=== PATIENT | male | born 1980 | race Caucasian/White ===

== ENCOUNTER 2016-09-26 08:47 | Emergency (ER) | payer MEDICAID ==
[~2016-09-26] VITALS: Ht 152.4 cm; Wt 78.0 kg
[2016-09-26 08:49] VITALS: Ht 152.4 cm; Wt 78.0 kg
[2016-09-26] MEDS ORDERED: ONDANSETRON (ODT) 4 MG TAB ODT STA (09:21)
[2016-09-26] MEDS ORDERED: ONDA4TAB14 PO (09:23)
[2016-09-26] MEDS ORDERED: ACET500C5 PO (09:23)
--- NOTE | 2016-09-26 09:39 | ERD ---
ER Documentation Chief Complaint Date/Time DATE: 09/26/16 TIME: 09:35 Chief Complaint ABD PAIN SINCE YESTERDAY HPI Patient is a 35-year-old male with no past medical history who presents to the ED with generalized abdominal pain and one episode of nonbloody nonbilious emesis yesterday after eating oysters. Patient states that he had oysters from the streets. And soon developed abdominal pain and vomiting. He has not had any vomiting today or diarrhea. States his last bowel movement was yesterday. Denies headache, neck pain, neck stiffness. Denies dysuria urgency. Denies fever or chills. Has not taken any medication for his symptoms. Has no other complaints. ROS All systems reviewed and are negative except as per history of present illness. Medications Home Meds Active Scripts Acetaminophen* (Tylophen*) 500 Mg Capsule, 1 CAP PO Q6H Y for PAIN AND OR ELEVATED TEMP, #20 CAP Prov:NITHYA SALAZAR PA-C 09/26/16 Ondansetron (Ondansetron Odt) 4 Mg Tab.rapdis, 4 MG PO Q6H Y for NAUSEA AND/OR VOMITING, #20 TAB Prov:NITHYA SALAZAR PA-C 09/26/16 PMhx/Soc Medical and Surgical Hx: pt denies Medical Hx, pt denies Surgical Hx History of Surgery: No Anesthesia Reaction: No Hx Neurological Disorder: No Hx Respiratory Disorders: No Hx Cardiac Disorders: No Hx Psychiatric Problems: No Hx Miscellaneous Medical Probl: No Hx Alcohol Use: Yes (3 beers per day) Hx Substance Use: No Hx Tobacco Use: No Smoking Status: Never smoker FmHx Family History: No coronary disease, No diabetes, No other Physical Exam Vitals Vital Signs Date Time Temp Pulse Resp B/P Pulse Ox O2 Delivery O2 Flow Rate FiO2 09/26/16 08:49 98.0 78 18 141/78 99 Physical Exam GENERAL: Well-developed, well-nourished male. Appears in no acute distress. HEAD: Normocephalic, atraumatic. EYES: Pupils are equally reactive bilaterally. EOMs grossly intact. No conjunctival erythema. ENT: Moist mucous membranes. No uvula deviation. No kissing tonsils. No exudates. NECK: Supple. No lymphadenopathy or thyromegaly. No meningismus. negative kernig. negative brudinski. LUNG: Clear to auscultation bilaterally. No rhonchi, wheezing, rales or coarse breath sounds. HEART: Regular rate and rhythm. No murmurs, rubs or gallops. ABDOMEN: No scars, ecchymosis or rashes noted. Soft nondistended positive bowel sounds in all four quadrants. No rebound tenderness, no guarding. (-) McBurneys point tenderness. No CVA tenderness. Generalized tenderness. No focal tenderness. BACK: No midline tenderness. Extremities: Equal pulses bilaterally. No peripheral clubbing, cyanosis or edema. No unilateral leg swelling. NEUROLOGIC: Alert and oriented. Moving all four extremities. 5/5 strength in all extremities. Normal speech. Steady gait. Moist mucous membranes SKIN: Normal color. Warm and dry. No rashes or lesions. Capillary refill < 2 seconds Results 24 hrs Current Medications Medications (Trade) Dose Ordered Sig/Sulaiman Route PRN Reason Start Time Stop Time Status Last Admin Dose Admin Ondansetron HCl (Zofran Odt) 4 mg ONCE STAT ODT 09/26/16 09:21 09/26/16 09:23 DC 09/26/16 09:38 Procedures/MDM ER COURSE: I kept the patient and/or family informed of laboratory and diagnostic imaging results throughout the emergency room course. MEDICATIONS Zofran, p.o. challenge. Tolerated well with no adverse reaction. MEDICAL DECISION MAKING: This is a 35-year-old male who presents with abdominal pain and vomiting 1 day. Vital signs were reviewed. Patient is afebrile. Patient is not hypoxic. Patient is not toxic or ill-appearing. Patient likely has abdominal pain of viral etiology. Patient's abdominal pain occurred after eating oysters. He has not had any vomiting or diarrhea today. I do not think further imaging studies or blood work is necessary today. Risk versus benefits of the CT scan were discussed with patient. However at this point I do not think a CT scan is warranted. Patient does not have focal tenderness on exam. Low suspicion for ACS, AAA, perforated ulcer, bowel obstruction, cholecystitis, choledocholithiasis, cholangitis, pancreatitis, hepatic abscess, appendicitis, diverticulitis, gastroenteritis, hepatitis, peptic ulcer disease. I reexamined patient after administration of medication, seen improvement in symptoms. DISCHARGE: At this time, patient is stable for discharge and outpatient management with no new complaints during the ER course. Patient was sent home with Zofran, Tylenol and note for work to follow a bland diet.. Patient will be discharged home with instructions to recheck for new or worsening symptoms such as fever, nausea, weakness, LOC and to follow up with primary care in the next 1-2 days. Patient was advised to return to the ER for any new or worsening symptoms. Plan was discussed and patient and/or family understands and agrees. Home instructions were given. Departure Diagnosis: Primary Impression: Nausea & vomiting Vomiting type: unspecified Vomiting Intractability: non-intractable Qualified Code: R11.2 - Non-intractable vomiting with nausea, unspecified vomiting type Condition: Stable Patient Instructions: Nausea and Vomiting-Adult Referrals: [facility] Usted se quinn hecho un examen mdico de control que le indica que no est en norma condicin que requiera tratamiento urgente en el Departamento de Emergencia. Un estudio ms profundo y el tratamiento de benitez condicin pueden esperar sin ningn riesgo hasta que usted sea atendida/o en el consultorio de benitez mdico o norma cl akash. Es responsabilidad suya arreglar norma cristina para el seguimiento del alexey. MANEJO DE CONDICIONES NO URGENTES EN EL FUTURO 1) Si usted tiene un mdico de atencin primaria: Usted debera llamar a benitez mdico de atencin primaria antes de venir al departamento de emergencia. Despus de las horas de consultorio, benitez doctor o benitez asociado/a est disponible por telfono. El mdico o enfermero de bridget en el servicio telefnico puede asesorarle por edward medio para atender el problema, o alexey contrario se puede programar norma cristina. 2) Si usted no tiene un mdico de atencin primaria: Llame al mdico o clnica de referencia que aparece abajo no las horas de consultorio para hacer norma cristina para que le vean. CLINICAS: [place] [address] [phone] [facility] [phone] [facility] [phone] [place] [address] [phone] [place] [phone] [place] [id number] [phone] Additional Instructions: Llame al doctor MAANA y susan norma CRISTINA PARA DENTRO DE 1-2 FIGUEROA.Dgale a la secretaria que nosotros le instruimos hacer esta cristina.Avise o llame si benitez condicin se empeora antes de la cristina. Regresa aqui si peor o no mejor. NITHYA SALAZAR PA-C September 26, 2016 09:39
== END 2016-09-26 10:12 | disposition home or self-care (01) ==
LOC: FTE 08:47
DX: R11.2 Nausea with vomiting, unspecified (principal)
CPT/HCPCS: Z7502; Z7610; 99283

== ENCOUNTER 2017-01-21 22:52 | Inpatient (IN) | payer MEDICAID ==
[~2017-01-21] VITALS: Ht 170.2 cm; Wt 82.2 kg
[~2017-01-21 22:52] MED LIST: ACET500C5 PO; ONDA4TAB14 PO
[2017-01-22] VITALS (23 sets, daily range): BP systolic 120–159; BP diastolic 66–99; PULSE 62–86; RESP 13–22; TEMP 98.6; Ht 170.2 cm; Wt 82.2 kg
[2017-01-22] MEDS ORDERED: morphine 4 MG/ML VIAL IV STA (00:17)
[2017-01-22] MEDS ORDERED: ONDANSETRON 4 MG INJ IV STA (00:17)
[2017-01-22 01:19] LABS: BASOPHIL # 0.1 10^3/ul (0.0-0.1); BASOPHILS % 0.3 % (0.0-2.0); EOSINOPHILS # 0.1 10^3/ul (0.0-0.5); EOSINOPHILS % 0.3 % (0.0-7.0); HEMATOCRIT 41.7 % (42.0-52.0); HEMOGLOBIN 15.4 g/dl (14.0-18.0); LYMPHOCYTES % 6.6 % (15.0-51.0); MEAN CORPUSCULAR HEMOGLOBIN 32.2 pg (29.0-33.0); MEAN CORPUSCULAR HGB CONC 36.9 g/dl (32.0-37.0); MEAN CORPUSCULAR VOLUME 87.1 fl (82.0-101.0); MEAN PLATELET VOLUME 10.1 fl (7.4-10.4); MONOCYTE # 0.6 10^3/ul (0.3-0.9); MONOCYTES % 3.9 % (0.0-11.0); NEUTROPHIL # 13.5 10^3/ul (1.6-7.5); NEUTROPHILS % 88.6 % (39.0-77.0); PLATELET COUNT 240 10^3/UL (140-415); RED BLOOD COUNT 4.79 10^6/ul (4.70-6.10); WHITE BLOOD COUNT 15.3 10^3/ul (4.8-10.8)
--- NOTE | 2017-01-22 01:37 | RADRPT ---
PROCEDURE: CT Abdomen and Pelvis without contrast. CLINICAL INDICATION: Abdominal pain. TECHNIQUE: A CT scan of the abdomen and pelvis was performed without intravenous contrast. Nava l and sagittal reformatted images were generated. Images were reviewed on a high-resolution PACS wor kstation. CTDIvol: 12.22 mGy. DLP: 788.19 mGy-cm. One or more of the following dose reduction techniques were used: - Automated exposure control. - Adjustment of the mA and/or kV according to patient size. - Use of iterative reconstruction technique. COMPARISON: None. FINDINGS: There are dependent atelectatic changes in both lower lungs. Evaluation of the abdominal and pelvic viscera is limited by the lack of oral and intravenous contra st. The liver is unremarkable. The gallbladder is normal in appearance. The common bile duct is not dila sandee. The spleen is not enlarged. No pancreatic lesion is identified and there is no pancreatic ducta l dilatation. The adrenal glands are unremarkable. The kidneys are normal in size. There is no perinephric fat stranding. No hydronephrosis is seen. No urinary stone is identified. The small and large bowel are normal in caliber. There is no bowel wall thickening.The appendix is d ilated up to 1.2 cm in diameter and there are periappendiceal inflammatory changes, consistent with appendicitis. No associated periappendiceal fluid collection or pneumoperitoneum is identified. The appendix overlies the right psoas muscle. The urinary bladder is unremarkable. The pelvic organs are within normal limits. There is a small fa t containing right inguinal hernia. No lymphadenopathy is identified. There is no ascites. There are no arterial calcifications. A small fat containing periumbilical hernia is noted. No suspicious osseous lesion is idenitified. IMPRESSION: 1. Appendicitis. No pneumoperitoneum or abscess is identified. The appendix overlies the right psoa s muscle. 2. Small fat containing periumbilical and right inguinal hernias. RPTAT: HTAR .Juanito Cordero MD, Date Time Electronically viewed and signed by .Juanito Cordero MD, on 01/22/2017 01:37 .R/
[2017-01-22 01:43] LABS: ALBUMIN 4.3 g/dl (3.3-4.9); ALBUMIN/GLOBULIN RATIO 1.34; BILIRUBIN,INDIRECT 0.4 mg/dl (0-1.1); BILIRUBIN,TOTAL 0.4 mg/dl (0.2-1.3); CALCIUM 9.7 mg/dl (8.4-10.2); CREATININE 0.8 mg/dl (0.61-1.24); POTASSIUM 3.6 mmol/L (3.5-5.1); TOTAL PROTEIN 7.5 g/dl (6.1-8.1)
--- NOTE | 2017-01-22 01:51 | ERD ---
ER Documentation Chief Complaint Date/Time DATE: 01/22/17 TIME: 01:46 Chief Complaint lower abd pain x 1 day (KEANU MATSON PA-C) HPI Patient is a 36-year-old male who presents to the emergency department for concerns of lower abdominal pain which started at 3 PM today. Patient describes the pain to be episodic in nature. Patient states the pain is in his bilateral right and lower quadrants. Patient denies any fevers, chills, nausea , vomiting, dysuria, diarrhea or rectal bleeding. She denies any chest pain, shortness of breath, LOC. Patient states his last bowel movement was earlier today. Patient's last p.o. intake was at 6 PM. No recent travel. No sick contacts. (KEANU MATSON PA-C) ROS All systems reviewed and are negative except as per history of present illness. (KEANU MATSON PA-C) Medications Home Meds Active Scripts Acetaminophen* (Tylophen*) 500 Mg Capsule, 1 CAP PO Q6H Y for PAIN AND OR ELEVATED TEMP, #20 CAP Prov:NITHYA SALAZAR PA-C 09/26/16 Ondansetron (Ondansetron Odt) 4 Mg Tab.rapdis, 4 MG PO Q6H Y for NAUSEA AND/OR VOMITING, #20 TAB Prov:NITHYA SALAZAR PA-C 09/26/16 Allergies Allergies: Coded Allergies: No Known Allergy (Unverified , 01/21/17) PMhx/Soc Medical and Surgical Hx: pt denies Medical Hx, pt denies Surgical Hx History of Surgery: No Anesthesia Reaction: No Hx Neurological Disorder: No Hx Respiratory Disorders: No Hx Cardiac Disorders: No Hx Psychiatric Problems: No Hx Miscellaneous Medical Probl: No Hx Alcohol Use: Yes (3 beers per day) Hx Substance Use: No Hx Tobacco Use: No (KEANU MATSON PA-C) Physical Exam Vitals Vital Signs Date Time Temp Pulse Resp B/P Pulse Ox O2 Delivery O2 Flow Rate FiO2 01/21/17 22:54 98.4 71 20 131/77 99 (MARCOS CHA DO) Physical Exam GENERAL: Well-developed, well-nourished male. Appears in no acute distress. HEAD: Normocephalic, atraumatic. EYES: Pupils are equally reactive bilaterally. EOMs grossly intact. No conjunctival erythema. ENT: Moist mucous membranes. No uvula deviation. No kissing tonsils. NECK: Supple. No meningismus. Normal range of motion of the neck. LUNG: Clear to auscultation bilaterally. No rhonchi, wheezing, rales or coarse breath sounds. HEART: Regular rate and rhythm. No murmurs, rubs or gallops. ABDOMEN: Soft, and nondistended. Tender to palpation in the right lower quadrant and left lower quadrant. +Guarding. +McBurney's point tenderness. No CVA tenderness. BACK: No midline tenderness. EXTREMITIES: Equal pulses bilaterally. No peripheral clubbing, cyanosis or edema. No unilateral leg swelling. NEUROLOGIC: Alert and oriented. Moving all four extremities without any difficulty. Normal speech. Steady gait. SKIN: Normal color. Warm and dry. No rashes or lesions. (KEANU MATSON PA-C) Result Diagram: 01/22/17 0054 01/22/17 0054 Results 24 hrs Laboratory Tests Test 01/22/17 00:54 White Blood Count 15.310^3/ul Red Blood Count 4.7910^6/ul Hemoglobin 15.4g/dl Hematocrit 41.7% Mean Corpuscular Volume 87.1fl Mean Corpuscular Hemoglobin 32.2pg Mean Corpuscular Hemoglobin Concent 36.9g/dl Red Cell Distribution Width 12.0% Platelet Count 92041^3/UL Mean Platelet Volume 10.1fl Neutrophils % 88.6% Lymphocytes % 6.6% Monocytes % 3.9% Eosinophils % 0.3% Basophils % 0.3% Nucleated Red Blood Cells % 0.0/100WBC Neutrophils # 13.510^3/ul Lymphocytes # 1.010^3/ul Monocytes # 0.610^3/ul Eosinophils # 0.110^3/ul Basophils # 0.110^3/ul Nucleated Red Blood Cells # 0.010^3/ul Current Medications Medications (Trade) Dose Ordered Sig/Sulaiman Route PRN Reason Start Time Stop Time Status Last Admin Dose Admin Morphine Sulfate (morphine) 4 mg ONCE STAT IV 01/22/17 00:17 01/22/17 00:18 DC 01/22/17 00:59 Ondansetron HCl 4 mg 4 mg ONCE STAT IV 01/22/17 00:17 01/22/17 00:18 DC 01/22/17 00:59 Sodium Chloride (NS) 1,000 ml @ 1,000 mls/hr Q1H ONCE IV 01/22/17 02:00 01/22/17 02:59 Morphine Sulfate 2 mg 2 mg ONCE ONCE IV 01/22/17 02:00 01/22/17 02:01 Piperacillin Sod/ Tazobactam Sod 100 ml @ 200 mls/hr ONCE ONCE IVPB 01/22/17 02:00 01/22/17 02:29 UNV Sodium Chloride (NS) 1,000 ml @ 1,000 mls/hr Q1H ONCE IV 01/22/17 02:00 01/22/17 02:59 UNV (MARCOS CHA DO) Procedures/MDM ED COURSE: The patient was stable throughout ED course. I kept the patient and/or family informed of laboratory and diagnostic imaging results throughout the ED course. DIAGNOSTIC IMAGING: Read by radiologist. DIAGNOSTIC IMAGING REPORT Patient: PREM KATZ : 1980 Age: 36 Sex: M MR #: [id number] DOS: 01/22/17 0017 Ordering MD: KEANU MATSON PA-C Location: [facility] Room/Bed: PROCEDURE: CT Abdomen and Pelvis without contrast. CLINICAL INDICATION: Abdominal pain. TECHNIQUE: A CT scan of the abdomen and pelvis was performed without intravenous contrast. Coronal and sagittal reformatted images were generated. Images were reviewed on a high-resolution PACS workstation. CTDIvol: 12.22 mGy. DLP: 788.19 mGy-cm. One or more of the following dose reduction techniques were used: - Automated exposure control. - Adjustment of the mA and/or kV according to patient size. - Use of iterative reconstruction technique. COMPARISON: None. FINDINGS: There are dependent atelectatic changes in both lower lungs. Evaluation of the abdominal and pelvic viscera is limited by the lack of oral and intravenous contrast. The liver is unremarkable. The gallbladder is normal in appearance. The common bile duct is not dilated. The spleen is not enlarged. No pancreatic lesion is identified and there is no pancreatic ductal dilatation. The adrenal glands are unremarkable. The kidneys are normal in size. There is no perinephric fat stranding. No hydronephrosis is seen. No urinary stone is identified. The small and large bowel are normal in caliber. There is no bowel wall thickening.The appendix is dilated up to 1.2 cm in diameter and there are periappendiceal inflammatory changes, consistent with appendicitis. No associated periappendiceal fluid collection or pneumoperitoneum is identified. The appendix overlies the right psoas muscle. The urinary bladder is unremarkable. The pelvic organs are within normal limits. There is a small fat containing right inguinal hernia. No lymphadenopathy is identified. There is no ascites. There are no arterial calcifications. A small fat containing periumbilical hernia is noted. No suspicious osseous lesion is idenitified. IMPRESSION: 1. Appendicitis. No pneumoperitoneum or abscess is identified. The appendix overlies the right psoas muscle. 2. Small fat containing periumbilical and right inguinal hernias. RPTAT: HTAR .Juanito Cordero MD, MD Date Time Electronically viewed and signed by .Juanito Cordero MD, MD on 01/22/2017 01:37 .R/ CC: KEANU MATSON PA-C PROCEDURES: None. MEDICATIONS GIVEN: IV fluids, morphine, Zofran Patient tolerated medication well with no adverse reactions. Patient reported improvement in pain. MEDICAL DECISION MAKING: This is a 36-year-old male who presents with bilateral lower abdominal pain since 3 PM today. Vital signs were reviewed. Patient is afebrile. Abdominal exam revealed tenderness to palpation in the right lower quadrant, positive guarding and McBurney's point tenderness.Patient'a WBC count was noted to be 15.3. CMP showed no evidence of electrolyte abnormalities, severe acidosis, alkalosis, renal failure. Lipase showed no evidence of acute pancreatitis. UA pending. CT abdomen pelvis showed 1. Appendicitis. No pneumoperitoneum or abscess is identified. The appendix overlies the right psoas muscle. 2. Small fat containing periumbilical and right inguinal hernias. At this time, patient's presentation is most consistent with appendicitis. Patient was given IV fluids and Zosyn. I discussed the patient's CBC and CT scan findings with my supervising physician Dr. Cha. Dr. Cha will call the surgeon operations vice president for admission and further management.. Patient was moved over to the ED 1 for further management. (KEANU MATSON PA-C) The physician commercial assistant and I saw this patient together. I ordered Zosyn, extra fluid, coags. I spoke with Dr. Quick who accepts the patient. Be admitted to [facility] for surgical management of acute appendicitis. (MARCOS CHA DO) Departure Diagnosis: Primary Impression: Appendicitis Appendicitis type: acute appendicitis Acute appendicitis type: unspecified acute appendicitis type Qualified Code: K35.80 - Acute appendicitis, unspecified acute appendicitis type Condition: Serious KEANU MATSON PA-C Jan 22, 2017 01:51 MARCOS CHA DO Jan 22, 2017 02:02
[2017-01-22] MEDS ORDERED: SOD CHLORIDE 0.9% 1,000 ML IV ONE ×2 (02:00)
[2017-01-22] MEDS ORDERED: PIPER-TAZO 3.375 GM IV (PMX) 100 ML IVPB ONE (02:00)
[2017-01-22] MEDS ORDERED: morphine 2 MG INJ IV ONE (02:00)
[2017-01-22 02:12] LABS: INR 0.91; PROTIME 12.3 Sec (12.2-14.2)
[2017-01-22 02:50] LABS: ADD UMIC YES; UR ASCORBIC ACID NEGATIVE (NEGATIVE); UR BILIRUBIN (Dip) NEGATIVE (NEGATIVE); UR BLOOD (Dip) NEGATIVE (NEGATIVE); UR CLARITY CLEAR (CLEAR); UR COLOR YELLOW (YELLOW); UR GLUCOSE (Dip) NEGATIVE (NEGATIVE); UR KETONES (Dip) 2+ mg/dL (NEGATIVE); UR LEUKOCYTE ESTERASE (Dip) NEGATIVE Leu/ul (NEGATIVE); UR MUCUS FEW /HPF (NONE SEEN); UR NITRITE (Dip) NEGATIVE (NEGATIVE); UR RBC 1 /HPF (0-5); UR TOTAL PROTEIN (Dip) 1+ mg/dl (NEGATIVE); UR UROBILINOGEN (Dip) 2+ mg/dL (NEGATIVE)
[2017-01-22] MEDS ORDERED: ACETAMINOPHEN 325 MG TAB PO PRN (04:00)
[2017-01-22] MEDS ORDERED: ONDANSETRON 4 MG INJ IV PRN ×2 (04:00→04:30)
[2017-01-22] MEDS ORDERED: NACL 0.9% 3 ML SYG IV SCH (04:30)
[2017-01-22] MEDS ORDERED: ALBUTEROL/IPRATROPIUM (NEB) 3 ML AMP HHN PRN (04:30)
[2017-01-22] MEDS: DEXTROSE 5%-0.45% NACL 1,000 ML IV SCH ×3 (05:20→18:37)
[2017-01-22] MEDS ORDERED: DESFLURANE 15 MIN ONE (07:00)
[2017-01-22] MEDS: AMPICILLIN/SULB 3 GM/NS (PMX) 100 ML IVPB SCH ×4 (07:01→21:55)
--- NOTE | 2017-01-22 07:13 | HP ---
Date/Time of Note Date/Time of Note DATE: 01/22/17 TIME: 07:08 Assessment/Plan VTE Prophylaxis VTE Prophylaxis Intervention: SCD's Lines/Catheters IV Catheter Type (from Nrsg): Peripheral IV Assessment/Plan Assessment/Plan 1. Acute appendicitis -N.p.o. with IV fluid -Pain management -IV antibiotic -Awaiting surgical evaluation 2. Leukocytosis, secondary to appendicitis -IV antibiotic 3. Elevated transaminases -will follow-up in a.m. lab -will consider additional workup including abdominal ultrasound as needed HPI/ROS Admit Date/Time Admit Date/Time Jan 22, 2017 at 03:43 Hx of Present Illness This is a 36-year-old male with no significant past medical history who presented emergency department complaining of abdominal pain few hours. Pain is described as sharp, intermittent and is diffuse but mostly localized in the bilateral lower quadrant area. Denied nausea, vomiting, fever, chills, chest pain or shortness of breath. When he presented to the ER, lab shows WBC of 15,000, AST 55, ALT 85. His lipase is only 21. CT abdomen/pelvis shows appendicitis. . PMH/Family/Social Social History Smoking Status: Never smoker Exam/Review of Systems Vital Signs Vitals Vital Signs Date Time Temp Pulse Resp B/P Pulse Ox O2 Delivery O2 Flow Rate FiO2 01/22/17 05:00 98.0 86 18 120/75 95 01/22/17 04:00 Room Air Exam Constitutional: alert, oriented, well developed Head: atraumatic, normocephalic Eyes: EOMI, PERRL Respiratory: clear to auscultation, normal air movement Cardiovascular: regular rate and rhythm Gastrointestinal: soft, tender Extremities: normal pulses Labs Result Diagram: 01/22/17 0054 01/22/17 0054 Medications Medications Current Medications Dextrose/Sodium Chloride (D5-1/2ns) 1,000 ml @ 125 mls/hr Q8H IV Last administered on 01/22/17t 05:20; Admin Dose 125 MLS/HR; Start 01/22/17 at 04:04 Ondansetron HCl (Zofran Inj) 4 mg Q6H PRN IV NAUSEA AND/OR VOMITING; Start at 04:30 Morphine Sulfate 4 mg 4 mg Q4H PRN IV pain; Start 01/22/17 at 04:30 Ampicillin Sodium/ Sulbactam Sodium (Unasyn 3gm/NS (Pmx)) 100 ml @ 100 mls/hr Q8 IVPB Last administered on 01/22/17t 07:01; Admin Dose 100 MLS/HR; Start at 06:00 TRAY CELAYA MD Jan 22, 2017 07:13
[2017-01-22] MEDS ORDERED: BUPIVACAINE 0.5%/EPI (SDV) 10 ML INJ ONE (09:49)
[2017-01-22] MEDS ORDERED: LIDOCAINE 1% (MPF) 30 ML INJ ONE (09:49)
--- NOTE | 2017-01-22 10:38 | CONS ---
Date/Time of Note Date/Time of Note DATE: 01/22/17 TIME: 10:37 Assessment/Plan Assessment/Plan Chief Complaint/Hosp Course 1. Abdominal pain with CT dx of acute appendicitis. Possible hx of same 3 months ago. D/W options and abx vs sx and he prefers to proceed with surgery despite the risks. -iv abx -ivf -OR 2. Leukocytosis 2nd above -as above 3. Ventral hernia -will repair without mesh today but has higher chance of recurrence 4. Transaminitis -advised to stop or decrease etoh use -monitor 5. BMI 28 -diet/exercise optimization 6. Drinks daily -encouraged cessation 7. Smoker -encouraged cessation Thank you very much for consulting me in this patient's care, Problems: Consultation Date/Type/Reason Admit Date/Time Jan 22, 2017 at 03:43 Date of Consultation: Jan 22, 2017 Type of Consultation: Gen Surgical Reason for Consultation Abdominal pain Leukocytosis BMI 28 Transaminitis Referring Provider: IKER CHAVEZ DO Hx of Present Illness Byron Ge is a 36yo male who presents with 1 days of abdominal pain in rlq associated with n/v/subjective fevers or chills. No cp/sob. No cough, sz, rash, dysuria, quinn, visual or neuro changes. Patient had similar episode 3 months ago and was treated with abx only. 12 point ros negative unless addressed in hpi Past Medical History Hx of appendicitis txd with abx Transaminitis Ventral hernia BMI 28 Drinks daily Smoker Leukocytosis Past Surgical History Past Surgical Hx: no surgical history Family History Significant Family History: no pertinent family hx Social History Zhou/cabinets Alcohol Use: other (Daily ) Smoking Status: Current every day smoker Drug Use: none Exam/Review of Systems Vital Signs Vitals Vital Signs Date Time Temp Pulse Resp B/P Pulse Ox O2 Delivery O2 Flow Rate FiO2 01/22/17 08:30 98.4 75 18 123/72 97 01/22/17 04:00 Room Air Exam Constitutional: alert, oriented, No distress Psych: nl mood/affect, No anxiety Head: atraumatic, normocephalic Eyes: EOMI, PERRL, nl conjunctiva, No icteric ENMT: mucosa pink and moist, nl external ears & nose, nl lips & teeth Neck: non-tender, supple, No jvd Respiratory: normal air movement, No congested cough, No labored breathing Cardiovascular: regular rate and rhythm, No edema Gastrointestinal: soft, tender (min rlq), No distended, No rebound or guarding Genitourinary - Male: nl penis, nl scrotum Musculoskeletal: nl extremities to inspection, nl gait and stance, No joint tenderness Extremities: normal pulses, No calf tenderness, No cyanosis Neurological: nl mental status, nl speech, nl strength Skin: nl turgor, No diaphoresis, No rash or lesions Lymph: nl lymph nodes, nontender Results Result Diagram: 01/22/17 0054 01/22/17 0054 Results 24 hrs Laboratory Tests Test 01/22/17 00:54 01/22/17 00:55 01/22/17 01:49 White Blood Count 15.3 H Red Blood Count 4.79 Hemoglobin 15.4 Hematocrit 41.7 L Mean Corpuscular Volume 87.1 Mean Corpuscular Hemoglobin 32.2 Mean Corpuscular Hemoglobin Concent 36.9 Red Cell Distribution Width 12.0 Platelet Count 240 Mean Platelet Volume 10.1 Neutrophils % 88.6 H Lymphocytes % 6.6 L Monocytes % 3.9 Eosinophils % 0.3 Basophils % 0.3 Nucleated Red Blood Cells % 0.0 Neutrophils # 13.5 H Lymphocytes # 1.0 Monocytes # 0.6 Eosinophils # 0.1 Basophils # 0.1 Nucleated Red Blood Cells # 0.0 Sodium Level 139 Potassium Level 3.6 Chloride Level 105 Carbon Dioxide Level 25 Anion Gap 13 Blood Urea Nitrogen 17 Creatinine 0.80 Glucose Level 170 Calcium Level 9.7 Total Bilirubin 0.4 Direct Bilirubin 0.00 Indirect Bilirubin 0.4 Aspartate Amino Transf (AST/SGOT) 55 H Alanine Aminotransferase (ALT/SGPT) 85 H Alkaline Phosphatase 98 Total Protein 7.5 Albumin 4.3 Globulin 3.20 Albumin/Globulin Ratio 1.34 Lipase 21 L Prothrombin Time 12.3 Prothrombin Time Ratio 1.0 INR International Normalized Ratio 0.91 Activated Partial Thromboplast Time 28.0 Urine Color YELLOW Urine Clarity CLEAR Urine pH 5.0 Urine Specific [place] 1.030 Urine Ketones 2+ H Urine Nitrite NEGATIVE Urine Bilirubin NEGATIVE Urine Urobilinogen 2+ H Urine Leukocyte Esterase NEGATIVE Urine Microscopic RBC 1 Urine Microscopic WBC 1 Urine Mucus FEW A Urine Hemoglobin NEGATIVE Urine Glucose NEGATIVE Urine Total Protein 1+ H Medications Medications Current Medications Dextrose/Sodium Chloride (D5-1/2ns) 1,000 ml @ 125 mls/hr Q8H IV Last administered on 01/22/17 05:20; Admin Dose 125 MLS/HR; Start 01/22/17 at 04:04 Ondansetron HCl (Zofran Inj) 4 mg Q6H PRN IV NAUSEA AND/OR VOMITING; Start at 04:30 Morphine Sulfate 4 mg 4 mg Q4H PRN IV pain; Start 01/22/17 at 04:30 Ampicillin Sodium/ Sulbactam Sodium (Unasyn 3gm/NS (Pmx)) 100 ml @ 100 mls/hr Q8 IVPB Last administered on 01/22/17 07:01; Admin Dose 100 MLS/HR; Start at 06:00 CHARISSA CORREA MD Jan 22, 2017 10:38
[2017-01-22] MEDS ORDERED: MIDAZOLAM 1 MG/ML 2 ML INJ ONE (10:39)
[2017-01-22] MEDS ORDERED: CEFAZOLIN 1 GM INJ ONE (11:00)
[2017-01-22] MEDS ORDERED: LIDOCAINE 1% (MDV) 20 ML INJ ONE (11:00)
[2017-01-22] MEDS ORDERED: ROCURONIUM 50 MG INJ ONE (11:00)
[2017-01-22] MEDS ORDERED: PROPOFOL 20 ML ONE (11:00)
[2017-01-22] MEDS ORDERED: FAMOTIDINE 20 MG INJ ONE (11:28)
[2017-01-22] MEDS ORDERED: ONDANSETRON 4 MG INJ ONE (11:28)
[2017-01-22] MEDS ORDERED: DEXAMETHASONE 4 MG/ML 1 ML INJ ONE (11:28)
[2017-01-22] MEDS ORDERED: KETOROLAC 30 MG INJ ONE (11:29)
[2017-01-22] MEDS ORDERED: HYDROmorphONE (0.2 MG/ML) 10ML SYG IV PRN ×2 (11:30)
[2017-01-22] MEDS ORDERED: DIPHENHYDRAMINE 50 MG INJ IV PRN (11:30)
[2017-01-22] MEDS ORDERED: MEPERIDINE 25 MG INJ IV PRN (11:30)
[2017-01-22] MEDS ORDERED: SUGAMMADEX SODIUM 200 MG/2 ML VIAL IV ONE ×2 (11:37→11:56)
--- NOTE | 2017-01-22 11:53 | OPR ---
Date/Time of Note Date/Time of Note DATE: 01/22/17 TIME: 11:48 Operative Report Procedure Description Preoperative Diagnosis 1. Acute appendicitis 2. Ventral hernia Postoperative Diagnosis 1. Acute appendicitis 2. Ventral hernia Operation Performed 1. Laparoscopic appendectomy 2. Open ventral hernia repair 3. Local anesthetic [place], [id number] Surgeon: CHARISSA CORREA MD Anesthesia: general (Plus local plus regional) Anesthesiologist: Preston Cuevas MD Estimated Blood Loss: 5 ml's Specimens: Appendix Tubes/Drains None Complications: None Pt Condition Post Procedure: stable Disposition: PACU Indications: Per consult note. Risks include but are not limited to bleeding, infection, abscess, seroma, leak , damage to intestines or any intra-abdominal/intrapelvic structures, hernia formation, chronic pain, need for re-operations or further surgeries, [place], stroke , PE, DVT, pneumonia, organ failures, or even . Procedure Note: Patient was brought into the operating room, placed supine on the operating table, SCDs were placed, left arm was tucked, all pressure points were well- padded, preoperative antibiotics administered, and after induction of anesthesia , he was prepped and draped in usual sterile fashion, and timeout was performed. Incision was made supraumbilically and through the ventral hernia abdomen was entered, 12 mm port was applied, abdomen was insufflated to 15 mmHg with CO2. Laparoscopy was performed and no injuries were identified using a 5 mm 30 scope. Under direct visualization 2 other 5 mm ports were placed in left lower quadrant and suprapubic regions avoiding the bladder. All incision sites were injected with quarter percent Marcaine with 1% lidocaine with epi. Bilateral transversus abdominis plane block was performed by anesthesia to aid with pain control intra-and postoperatively. Patient was placed in Trendelenburg and right side up. The appendix was found to be minimally inflamed. The base was transected using Endo IVETH white load automatic 35 mm stapler just on the cecum. The amber were fired fully. The mesoappendix was transected with another white load stapler. Hemostasis was fully obtained. The appendix was placed in an Endo Catch bag and removed through the suprapubic port site. That fascia was closed with Endo Close and 0 Vicryl in a [id number] manner avoiding the bladder. Ports and CO2 were removed under direct visualization, wounds were fully irrigated, and skin was closed in subcuticular fashion using 4-0 Monocryl. Dermabond was applied. All counts were correct and the end of the operation 2. Patient was extubated and transferred to recovery room in stable condition. CHARISSA CORREA MD Jan 22, 2017 11:53
--- NOTE | 2017-01-22 12:58 | PN ---
Date/Time of Note Date/Time of Note DATE: 01/22/17 TIME: 12:55 Assessment/Plan VTE Prophylaxis VTE Prophylaxis Intervention: SCD's Lines/Catheters IV Catheter Type (from Nrs): Peripheral IV Assessment/Plan Problems: (1) S/P laparoscopic appendectomy Status: Acute Comment: Stable post op. Continue care and brief antibiotics (2) Alcohol abuse Status: Chronic Comment: Strongly counselled especially in light of LFT abnormalities (3) Elevated transaminase measurement Status: Chronic Comment: NOted, Hep serologies pending (4) Tobacco abuse Status: Chronic Comment: Patient disavows this Subjective 24 Hr Interval Summary Free Text/Dictation Patient seen in PACU post op Respiratory: no complaints (Note denies any history of resp issues) Cardiovascular: no complaints Gastrointestinal: no complaints Exam/Review of Systems Vital Signs Vitals Vital Signs Date Time Temp Pulse Resp B/P Pulse Ox O2 Delivery O2 Flow Rate FiO2 01/22/17 12:12 98.0 01/22/17 08:30 75 18 123/72 97 01/22/17 04:00 Room Air Exam Constitutional: alert, oriented Neck: non-tender, supple Respiratory: clear to auscultation, normal air movement Cardiovascular: nl pulses, regular rate and rhythm Gastrointestinal: nl liver, spleen, soft Results Result Diagram: 01/22/17 0054 01/22/17 0054 Results 24 hrs Laboratory Tests Test 01/22/17 00:54 01/22/17 00:55 01/22/17 01:49 White Blood Count 15.3 H Red Blood Count 4.79 Hemoglobin 15.4 Hematocrit 41.7 L Mean Corpuscular Volume 87.1 Mean Corpuscular Hemoglobin 32.2 Mean Corpuscular Hemoglobin Concent 36.9 Red Cell Distribution Width 12.0 Platelet Count 240 Mean Platelet Volume 10.1 Neutrophils % 88.6 H Lymphocytes % 6.6 L Monocytes % 3.9 Eosinophils % 0.3 Basophils % 0.3 Nucleated Red Blood Cells % 0.0 Neutrophils # 13.5 H Lymphocytes # 1.0 Monocytes # 0.6 Eosinophils # 0.1 Basophils # 0.1 Nucleated Red Blood Cells # 0.0 Sodium Level 139 Potassium Level 3.6 Chloride Level 105 Carbon Dioxide Level 25 Anion Gap 13 Blood Urea Nitrogen 17 Creatinine 0.80 Glucose Level 170 Calcium Level 9.7 Total Bilirubin 0.4 Direct Bilirubin 0.00 Indirect Bilirubin 0.4 Aspartate Amino Transf (AST/SGOT) 55 H Alanine Aminotransferase (ALT/SGPT) 85 H Alkaline Phosphatase 98 Total Protein 7.5 Albumin 4.3 Globulin 3.20 Albumin/Globulin Ratio 1.34 Lipase 21 L Prothrombin Time 12.3 Prothrombin Time Ratio 1.0 INR International Normalized Ratio 0.91 Activated Partial Thromboplast Time 28.0 Urine Color YELLOW Urine Clarity CLEAR Urine pH 5.0 Urine Specific [place] 1.030 Urine Ketones 2+ H Urine Nitrite NEGATIVE Urine Bilirubin NEGATIVE Urine Urobilinogen 2+ H Urine Leukocyte Esterase NEGATIVE Urine Microscopic RBC 1 Urine Microscopic WBC 1 Urine Mucus FEW A Urine Hemoglobin NEGATIVE Urine Glucose NEGATIVE Urine Total Protein 1+ H Medications Medications Current Medications Dextrose/Sodium Chloride (D5-1/2ns) 1,000 ml @ 125 mls/hr Q8H IV Last administered on 01/22/17 05:20; Admin Dose 125 MLS/HR; Start 01/22/17 at 04:04 Ondansetron HCl (Zofran Inj) 4 mg Q6H PRN IV NAUSEA AND/OR VOMITING; Start at 04:30 Morphine Sulfate 4 mg 4 mg Q4H PRN IV pain; Start 01/22/17 at 04:30 Ampicillin Sodium/ Sulbactam Sodium (Unasyn 3gm/NS (Pmx)) 100 ml @ 100 mls/hr Q8 IVPB Last administered on 01/22/17 07:01; Admin Dose 100 MLS/HR; Start at 06:00 MARCOS TAFOYA MD Jan 22, 2017 12:58
--- NOTE | 2017-01-22 13:17 | QN ---
Documentation Comment i have tried to put my orders in twice and the orders are locked out bc being used by another user at this time and I am unable to continue CHARISSA CORREA MD Jan 22, 2017 13:17
[2017-01-22] MEDS: morphine 4 MG/ML VIAL IV PRN (18:36)
[2017-01-23] VITALS (14 sets, daily range): BP systolic 116–145; BP diastolic 60–83; PULSE 64–108; RESP 18–20
[2017-01-23] MEDS: DEXTROSE 5%-0.45% NACL 1,000 ML IV SCH ×4 (01:30→20:04)
[2017-01-23] MEDS: morphine 4 MG/ML VIAL IV PRN (01:44)
[2017-01-23] MEDS: AMPICILLIN/SULB 3 GM/NS (PMX) 100 ML IVPB SCH ×3 (05:27→21:44)
[2017-01-23 07:26] LABS: BASOPHILS % 0.1 % (0.0-2.0); EOSINOPHILS % 0.1 % (0.0-7.0); HEMATOCRIT 37.6 % (42.0-52.0); HEMOGLOBIN 13.7 g/dl (14.0-18.0); LYMPHOCYTES # 1.4 10^3/ul (0.8-2.9); LYMPHOCYTES % 16.7 % (15.0-51.0); MEAN CORPUSCULAR HEMOGLOBIN 32.5 pg (29.0-33.0); MEAN CORPUSCULAR HGB CONC 36.4 g/dl (32.0-37.0); MEAN CORPUSCULAR VOLUME 89.1 fl (82.0-101.0); MEAN PLATELET VOLUME 9.9 fl (7.4-10.4); MONOCYTE # 0.5 10^3/ul (0.3-0.9); MONOCYTES % 6.2 % (0.0-11.0); NEUTROPHIL # 6.3 10^3/ul (1.6-7.5); NEUTROPHILS % 76.7 % (39.0-77.0); PLATELET COUNT 205 10^3/UL (140-415); RED BLOOD COUNT 4.22 10^6/ul (4.70-6.10); RED CELL DISTRIBUTION WIDTH 12.3 % (11.5-14.5); WHITE BLOOD COUNT 8.2 10^3/ul (4.8-10.8)
[2017-01-23 08:07] LABS: ALBUMIN 3.6 g/dl (3.3-4.9); ALBUMIN/GLOBULIN RATIO 1.16; BILIRUBIN,INDIRECT 0.4 mg/dl (0-1.1); BILIRUBIN,TOTAL 0.4 mg/dl (0.2-1.3); CALCIUM 8.9 mg/dl (8.4-10.2); CREATININE 0.69 mg/dl (0.61-1.24); MAGNESIUM 2.1 mg/dl (1.7-2.5); PHOSPHORUS 3.4 mg/dl (2.5-4.9); POTASSIUM 3.5 mmol/L (3.5-5.1); TOTAL PROTEIN 6.7 g/dl (6.1-8.1)
--- NOTE | 2017-01-23 09:17 | PN ---
Date/Time of Note Date/Time of Note DATE: 01/23/17 TIME: 09:01 Assessment/Plan Lines/Catheters IV Catheter Type (from [facility]): Peripheral IV Assessment/Plan Chief Complaint/Hosp Course 1. Abdominal pain with CT dx of acute appendicitis s/p lap appy; improved -iv abx -ivf -advance diet as tolerated -ambulate -IS 2. Leukocytosis 2nd above: normalized 3. Ventral hernia: s/p repair -no heavy lifting 4. Transaminitis:normalized -advised to stop or decrease etoh use -monitor 5. BMI 28 -diet/exercise optimization 6. Drinks daily -encouraged cessation 7. Smoker -encouraged cessation 8. Tachycardia: episode of ST overnight-attributes to anxiety, no cp; currently SR -continue tele monitoring -further workup if persistent Thank you. Patient seen and examined in collaboration with Dr. Lazarus Quick. Problems: Subjective 24 Hr Interval Summary Patient transferred to tele floor overnight 2/2 tachycardia that patient attributes to anxiety-no stated cp. Currently sr. +flatus. Tolerating cl liquid diet. No fevers, chills, sob, congested cough, n/v/d/dysuria. Exam/Review of Systems Vital Signs Vitals Vital Signs Date Time Temp Pulse Resp B/P Pulse Ox O2 Delivery O2 Flow Rate FiO2 01/23/17 08:11 64 01/23/17 07:22 97.7 18 116/66 97 01/23/17 01:15 Nasal Cannula 2.0 Intake and Output 01/22/17 01/22/17 01/23/17 15:00 23:00 07:00 Intake Total 1150 ml 360 ml 1000 ml Output Total 5 ml 1050 ml 1190 ml Balance 1145 ml -690 ml -190 ml Exam Free Text/Dictation Constitutional: alert, oriented, No distress Psych: min anxiety overnight Head: atraumatic, normocephalic Eyes: EOMI, PERRL, nl conjunctiva, No icteric ENMT: mucosa pink and moist, nl external ears & nose, nl lips & teeth Neck: non-tender, supple, No jvd Respiratory: normal air movement, No congested cough, No labored breathing Cardiovascular: regular rate and rhythm, No edema Gastrointestinal: soft, tender (min), small bruise umbilical, incision sites dry +bowel sounds No distended, No rebound or guarding Genitourinary - Male: nl penis, nl scrotum Musculoskeletal: nl extremities to inspection, nl gait and stance, No joint tenderness Extremities: normal pulses, No calf tenderness, No cyanosis Neurological: nl mental status, nl speech, nl strength Skin: nl turgor, No diaphoresis, No rash or lesions Lymph: nl lymph nodes, nontender Results Result Diagram: 01/23/17 0650 01/23/17 0649 VINNY TATUM NP Jan 23, 2017 09:11
--- NOTE | 2017-01-23 13:06 | PN ---
Date/Time of Note Date/Time of Note DATE: 01/23/17 TIME: 13:03 Assessment/Plan VTE Prophylaxis VTE Prophylaxis Intervention: ambulation Lines/Catheters IV Catheter Type (from Nrs): Peripheral IV Assessment/Plan Chief Complaint/Hosp Course 1. Acute appendicitis status post lap appendectomy postop day #1 -Advance diet as tolerated -Pain management -Continue IV antibiotic for now, consider discontinuation tomorrow 2. Leukocytosis secondary to appendicitis--resolved -IV antibiotic 3. Elevated transaminases-resolved Prophylaxis: Ambulation Discharge planning: Anticipate DC home tomorrow Problems: Subjective 24 Hr Interval Summary Constitutional: no complaints Exam/Review of Systems Vital Signs Vitals Vital Signs Date Time Temp Pulse Resp B/P Pulse Ox O2 Delivery O2 Flow Rate FiO2 01/23/17 12:08 84 01/23/17 11:32 97.8 18 125/80 97 01/23/17 01:15 Nasal Cannula 2.0 Intake and Output 01/22/17 01/22/17 01/23/17 15:00 23:00 07:00 Intake Total 1150 ml 360 ml 1000 ml Output Total 5 ml 1050 ml 1190 ml Balance 1145 ml -690 ml -190 ml Exam Constitutional: alert, oriented Respiratory: clear to auscultation Cardiovascular: regular rate and rhythm Gastrointestinal: soft, No distended Musculoskeletal: nl extremities to inspection Results Result Diagram: 01/23/17 0650 01/23/17 0649 Results 24 hrs Laboratory Tests Test 01/23/17 06:49 01/23/17 06:50 Sodium Level 140 Potassium Level 3.5 Chloride Level 106 Carbon Dioxide Level 29 Anion Gap 9 Blood Urea Nitrogen 8 # Creatinine 0.69 Glucose Level 111 # Calcium Level 8.9 Phosphorus Level 3.4 Magnesium Level 2.1 Total Bilirubin 0.4 Direct Bilirubin 0.00 Indirect Bilirubin 0.4 Aspartate Amino Transf (AST/SGOT) 33 Alanine Aminotransferase (ALT/SGPT) 57 Alkaline Phosphatase 63 Total Protein 6.7 Albumin 3.6 Globulin 3.10 Albumin/Globulin Ratio 1.16 White Blood Count 8.2 # Red Blood Count 4.22 L Hemoglobin 13.7 L Hematocrit 37.6 L Mean Corpuscular Volume 89.1 Mean Corpuscular Hemoglobin 32.5 Mean Corpuscular Hemoglobin Concent 36.4 Red Cell Distribution Width 12.3 Platelet Count 205 Mean Platelet Volume 9.9 Neutrophils % 76.7 Lymphocytes % 16.7 Monocytes % 6.2 Eosinophils % 0.1 Basophils % 0.1 Nucleated Red Blood Cells % 0.0 Neutrophils # 6.3 Lymphocytes # 1.4 Monocytes # 0.5 Eosinophils # 0.0 Basophils # 0.0 Nucleated Red Blood Cells # 0.0 Medications Medications Current Medications Dextrose/Sodium Chloride (D5-1/2ns) 1,000 ml @ 125 mls/hr Q8H IV Last administered on 01/23/17 01:30; Admin Dose 125 MLS/HR; Start 01/22/17 at 04:04 Ondansetron HCl (Zofran Inj) 4 mg Q6H PRN IV NAUSEA AND/OR VOMITING; Start at 04:30 Morphine Sulfate 4 mg 4 mg Q4H PRN IV pain Last administered on 01/23/17 01:44 ; Admin Dose 4 MG; Start 01/22/17 at 04:30 Ampicillin Sodium/ Sulbactam Sodium (Unasyn 3gm/NS (Pmx)) 100 ml @ 100 mls/hr Q8 IVPB Last administered on 01/23/17 05:27; Admin Dose 100 MLS/HR; Start at 06:00 LAWRENCE BURT Jan 23, 2017 13:06
[2017-01-24] VITALS (9 sets, daily range): BP systolic 118–127; BP diastolic 67–81; PULSE 57–87; RESP 18–20
[2017-01-24] MEDS: DEXTROSE 5%-0.45% NACL 1,000 ML IV SCH ×2 (04:04→11:05)
[2017-01-24] MEDS: AMPICILLIN/SULB 3 GM/NS (PMX) 100 ML IVPB SCH ×2 (06:00→14:33)
[2017-01-24 08:21] LABS: BASOPHILS % 0.4 % (0.0-2.0); EOSINOPHILS # 0.1 10^3/ul (0.0-0.5); EOSINOPHILS % 1.2 % (0.0-7.0); HEMATOCRIT 40.7 % (42.0-52.0); HEMOGLOBIN 14.5 g/dl (14.0-18.0); LYMPHOCYTES # 1.7 10^3/ul (0.8-2.9); LYMPHOCYTES % 25.1 % (15.0-51.0); MEAN CORPUSCULAR HEMOGLOBIN 32.2 pg (29.0-33.0); MEAN CORPUSCULAR HGB CONC 35.6 g/dl (32.0-37.0); MEAN CORPUSCULAR VOLUME 90.4 fl (82.0-101.0); MEAN PLATELET VOLUME 9.6 fl (7.4-10.4); MONOCYTE # 0.5 10^3/ul (0.3-0.9); MONOCYTES % 7.2 % (0.0-11.0); NEUTROPHIL # 4.6 10^3/ul (1.6-7.5); PLATELET COUNT 219 10^3/UL (140-415); RED CELL DISTRIBUTION WIDTH 12.3 % (11.5-14.5); WHITE BLOOD COUNT 6.9 10^3/ul (4.8-10.8)
[2017-01-24 08:46] LABS: CALCIUM 9.4 mg/dl (8.4-10.2); CREATININE 0.72 mg/dl (0.61-1.24); POTASSIUM 3.4 mmol/L (3.5-5.1)
--- NOTE | 2017-01-24 16:59 | PDOCDIS ---
Discharge Instructions DIAGNOSIS Discharge Diagnosis Appendicitis, hernia CONDITION Patient Condition: Good FOLLOW UP/APPOINTMENTS Follow-up Plan Follow up in the next 1-[address] Quick in clinic Avoid heavy lifting until you see your doctor in clinic Also avoid getting your incision wet for the next 1 week KATALINA URRUTIA MD Jan 24, 2017 16:59
--- NOTE | 2017-01-24 23:21 | PN ---
Date/Time of Note Date/Time of Note DATE: 01/24/17 TIME: 15:15 Assessment/Plan Lines/Catheters IV Catheter Type (from [email or web address] Peripheral IV Assessment/Plan Chief Complaint/Hosp Course 1. Abdominal pain with CT dx of acute appendicitis s/p lap appy; improved; tolerating clears +flatus -advance diet as tolerated -ambulate -IS -ice pack to abdominal wall -patient may be discharged per medical team once tolerating diet. To follow in office in 1-2 weeks 2. Leukocytosis 2nd above: normalized 3. Ventral hernia: s/p repair -no heavy lifting/strenous activity 4. Transaminitis:normalized -advised to stop or decrease etoh use -monitor 5. BMI 28 -diet/exercise optimization 6. Drinks daily -encouraged cessation 7. Smoker -encouraged cessation 8. Tachycardia: no episodes overnight-currently SR -continue tele monitoring -further workup if persistent Thank you. Patient seen and examined in collaboration with Dr. Lazarus Quick. Problems: Subjective 24 Hr Interval Summary Feeling well. No c/o abdominal pain/discomfort. +flatus. Tolerating clear diet. No n/v/d/dysuria, fevers, chills, sob, congested cough. Abdominal incisions without drainage. Exam/Review of Systems Vital Signs Vitals Vital Signs Date Time Temp Pulse Resp B/P Pulse Ox O2 Delivery O2 Flow Rate FiO2 01/24/17 16:00 57 01/24/17 15:20 98.6 18 118/67 97 01/23/17 20:00 Nasal Cannula 2.0 Intake and Output 01/23/17 01/23/17 01/24/17 15:00 23:00 07:00 Intake Total 2340 ml 1650 ml Output Total 1900 ml 1300 ml Balance 440 ml 350 ml Exam Free Text/Dictation Constitutional: alert, oriented, No distress Psych: nl mood Head: atraumatic, normocephalic Eyes: EOMI, PERRL, nl conjunctiva, No icteric ENMT: mucosa pink and moist, nl external ears & nose, nl lips & teeth Neck: non-tender, supple, No jvd Respiratory: normal air movement, No congested cough, No labored breathing Cardiovascular: regular rate and rhythm, No edema Gastrointestinal: soft, tender (min), small bruise umbilical (no further bruising), incision sites dry +bowel sounds No distended, No rebound or guarding Genitourinary - Male: nl penis, nl scrotum Musculoskeletal: nl extremities to inspection, nl gait and stance, No joint tenderness Extremities: normal pulses, No calf tenderness, No cyanosis Neurological: nl mental status, nl speech, nl strength Skin: nl turgor, No diaphoresis, No rash or lesions Lymph: nl lymph nodes, nontender Results Result Diagram: 01/24/17 0740 01/24/17 0739 VINNY TATUM NP Jan 24, 2017 23:21
--- NOTE | 2017-01-25 00:11 | RADRPT ---
Vent Rate: 112 bpm RR Interval: 0 msec SD Interval: 182 msec QRS Duration: 92 msec QT Interval: 322 msec QTC Interval: 439 msec P-R-T [place]: 50 - 56 - -9 degrees Sinus tachycardia Cannot rule out Inferior infarct , age undetermined Abnormal ECG Electronically Signed By: Jovan Lopes [id number]
== END 2017-01-24 18:50 | disposition home or self-care (01) | DRG 343 ==
LOC: FTE 22:52 → UNDOADMIN 01-22 03:34 → MS1 01-22 03:34 → UNDOADMIN 01-22 03:43 → TEL 01-23 00:53
PROVIDERS: ADMIT Internal Medicine; ATTEND Internal Medicine
PROC: 0WQF0ZZ Repair Abdominal Wall, Open Approach (ICD-10-PCS; 2017-01-22)
PROC: 0DTJ4ZZ Resection of Appendix, Percutaneous Endoscopic Approach (ICD-10-PCS; principal; 2017-01-22 10:30)
DX: K35.80 Unspecified acute appendicitis (principal); D72.829 Elevated white blood cell count, unspecified; K43.9 Ventral hernia without obstruction or gangrene; Z72.0 Tobacco use; F10.10 Alcohol abuse, uncomplicated
CPT/HCPCS: 36415; 74176; 80048; 80053; 81001; 83690; 83735; 84100; 85025; 85610; 85730; 88304; 93005; 96374; 96375; 96376; J0295; J0690; J1100; J1170; J1885; J2250; J2270; J2405; J2543; J3010; J7030; J7042